=== PATIENT | female | born 1960 | race Caucasian/White ===

== ENCOUNTER 2021-04-08 14:32 | Emergency (ER) | payer BC ==
[2021-04-08] MEDS ORDERED: Acetaminophen/HYDROcodone 325-5 MG Tab PO ONE (17:11)
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
--- NOTE | 2021-04-08 18:11 | CR ---
INDICATION: Finger dislocation status post reduction TECHNIQUE: Hand radiograph 3 views left COMPARISON: 04/08/2021 FINDINGS: Bone: The 3rd and 4th proximal interphalangeal joints of been reduced to anatomic alignment. There is a punctate density along the ulnar aspect of the 4th PIP joint. 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 Soft tissue: Unremarkable. No radiopaque foreign bodies are seen. IMPRESSIONS: 1. The 3rd and 4th proximal interphalangeal joints of been reduced to anatomic alignment. 2. There is a punctate density along the ulnar aspect of the 4th PIP joint. This may represent a small capsular calcification or avulsion fracture fragment. Dictated by Ludwig Ramon MD @ 04/08/2021 6:10:01 PM Dictated by: Ludwig Ramon MD @ 04/08/2021 18:10:17 (Electronically Signed)
== END 2021-04-08 18:49 | disposition home or self-care (01) ==
LOC: MW.ED 14:32
DX: S63.255A Unspecified dislocation of left ring finger, initial encounter (principal); S63.253A Unspecified dislocation of left middle finger, initial encounter; S00.83XA Contusion of other part of head, initial encounter; I10 Essential (primary) hypertension; Z88.5 Allergy status to narcotic agent; Z88.1 Allergy status to other antibiotic agents; W18.09XA Striking against other object with subsequent fall, initial encounter; Y93.55 Activity, bike riding
CPT/HCPCS: 26670; 73130; 99283; A9270